=== PATIENT | female | born 1975 | race Caucasian/White ===

== ENCOUNTER → 2020-02-20 | Outpatient (CLI) | payer BC ==
[~2020-02-20] MED LIST: AMOXICILLIN500 MG PO; ATARAX25 MG; COMBIVENT1 ARO IH; HYDROCODONE BIT1 T11 PO; LIDEX0.05% T; PREDNICOT20 MG PO; VICODIN ES 7501 TAB PO; ZOFRAN ODT4 MG SL; ZYRTEC5 M1 PO
== END | disposition home or self-care (01) ==
LOC: MAMMO 04:45
PROVIDERS: ATTEND Internal Medicine
DX: Z12.31 Encounter for screening mammogram for malignant neoplasm of breast (principal); N64.89 Other specified disorders of breast

== ENCOUNTER → 2020-03-18 | Outpatient (CLI) | payer BC ==
[~2020-03-18] MED LIST changes: +COLACE100 MG PO; +PERCOCET 5-3251 EACH PO
== END | disposition home or self-care (01) ==
LOC: MAMMO 00:19
PROVIDERS: ATTEND Internal Medicine
DX: N63.11 Unspecified lump in the right breast, upper outer quadrant (principal)

== ENCOUNTER → 2020-05-25 | Outpatient (CLI) | payer BC | END | disposition home or self-care (01) | LOC: COVID19 12:13 | PROVIDERS: ATTEND Surgery | DX: Z01.812 Encounter for preprocedural laboratory examination (principal); Z20.822 Contact with and (suspected) exposure to COVID-19 ==

== ENCOUNTER → 2020-05-28 | Day surgery (SDC) | payer BC ==
[2020-05-25 12:57] VITALS: BP 132/49
[~2020-05-28] VITALS: Ht 162.5 cm; Wt 79.8 kg
[2020-05-28 07:30] VITALS: BP 111/72
[2020-05-28 09:16] VITALS: BP 109/62
[2020-05-28 09:30] VITALS: BP 112/58
[2020-05-28 09:45] VITALS: BP 101/59
[2020-05-28 10:00] VITALS: BP 115/66
[2020-05-28 10:16] VITALS: BP 123/56
== END ==
LOC: SDC 05-25 12:30
PROVIDERS: ATTEND Surgery
DX: N63.10 Unspecified lump in the right breast, unspecified quadrant (principal); Z98.51 Tubal ligation status; C85.94 Non-Hodgkin lymphoma, unspecified, lymph nodes of axilla and upper limb; F17.210 Nicotine dependence, cigarettes, uncomplicated; G43.909 Migraine, unspecified, not intractable, without status migrainosus

== ENCOUNTER → 2020-06-26 | Outpatient (CLI) | payer BC | END | disposition home or self-care (01) | LOC: CT 08:52 | PROVIDERS: ATTEND Internal Medicine Hematology & Oncology | DX: C91.10 Chronic lymphocytic leukemia of B-cell type not having achieved remission (principal); K57.30 Diverticulosis of large intestine without perforation or abscess without bleeding; R91.8 Other nonspecific abnormal finding of lung field ==

== ENCOUNTER → 2022-01-21 | Outpatient (CLI) | payer BC | END | disposition home or self-care (01) | LOC: CT 09:00 | PROVIDERS: ATTEND Internal Medicine Hematology & Oncology | DX: C91.10 Chronic lymphocytic leukemia of B-cell type not having achieved remission (principal); R59.9 Enlarged lymph nodes, unspecified ==